=== PATIENT | male | born 1960 | race Two or more races ===

== ENCOUNTER 2016-03-14 11:50 | Emergency (ER) | payer MEDICAID ==
[~2016-03-14] VITALS: Ht 162.6 cm; Wt 120.2 kg
[~2016-03-14 11:50] MED LIST: ALBUPOW26 XX; ALPR2TAB2 PO; ASPI-498 OR; BACL-63 PO; DIPH-232 PO; DULO20CA PO; FURO20TA3 PO; IBUP800T24 PO; INSLISPI SC; INSUINJ2 SC; NORT25CA PO; OMEP20CA5 PO; ONDA4TAB8 SL; PAR20T PO; POTA10TA75 PO; PREG25CA PO; SIMV10TA84 PO; TRAM50TA2 PO; [UNRECOGNIZED DRUG - CODE] MT
[2016-03-14] MEDS ORDERED: SODIUM CHLORIDE 0.9% 1,000 ML IVB ONE (15:52)
[2016-03-14 16:31] LABS: Basophils # (auto) 0 uL; DEFINITIVE VIEW TRANSMISSION; Eosinophils # (auto) 0.2 uL; Hemoglobin 13.9 g/dL (13.5-17.5); Mean Corpuscular Hemoglobin 27.6 pg (28.0-32.0); Mean Platelet Volume 10.8 fL (7.4-10.4); Monocytes # (auto) 0.7 uL; Neutrophils % (auto) 61.1 % (37.0-80.0)
[2016-03-14 16:36] LABS: Basophils % (auto) 0.1 % (0.0-2.0); Eosinophils % (auto) 2.3 % (0.0-7.0); Hematocrit 43.5 % (41.0-53.0); Lymphocytes # (auto) 2.9 uL; Lymphocytes % (auto) 29.4 % (10.0-50.0); Mean Corpuscular Hgb Conc. 32.1 g/dL (32.0-36.0); Monocytes % (auto) 7.1 % (0.0-12.0); Platelet Count (auto) 179 10^3/uL (140-450); White Blood Cell 9.9 10^3/uL (4.4-10.8)
[2016-03-14 16:44] LABS: INR 1.05 (0.9-1.15); Partial Thromboplastin Time 26.1 sec (22.64-33.71); Prothrombin Time 10.8 sec (9.37-12.3)
[2016-03-14 16:46] LABS: Red Cell Distribution Width 20.6 % (11.6-16.0)
[2016-03-14 16:53] LABS: Albumin 3.9 g/dL (3.4-5.0); BUN/Creatinine Ratio 12.7; Bilirubin, Total 0.3 mg/dL (0.2-1.0); Calcium 9.5 mg/dL (8.5-10.1); Magnesium 2.2 mg/dL (1.6-2.6); Potassium 3.7 mmol/L (3.5-5.1); Total Protein 8.4 g/dL (6.4-8.2)
[2016-03-14 16:57] LABS: B-Type Natriuretic Peptide 1.81 pg/mL (0-100)
[2016-03-14 17:04] LABS: Temperature: 22.1 C (20.0-25.0)
[2016-03-14 17:49] LABS: Platelet Estimate Adequate
[2016-03-14 17:50] LABS: Anisocytosis Moderate
[2016-03-14 17:51] LABS: Stomatocytes Few
[2016-03-14 18:02] VITALS: BP 110/73
== END 2016-03-14 19:09 | disposition left against medical advice (07) ==
LOC: ER 11:50
DX: R05 Cough (principal); Z53.21 Procedure and treatment not carried out due to patient leaving prior to being seen by health care provider
CPT/HCPCS: 36415; 71010; 80053; 83735; 83880; 84484; 85025; 85610; 85730; 87040; 93005; J7030

== ENCOUNTER 2016-03-27 08:16 | Emergency (ER) | payer MEDICAID ==
[~2016-03-27] VITALS: Ht 162.6 cm; Wt 116.2 kg
[2016-03-27] MEDS ORDERED: INSLANTI SC (08:49)
[2016-03-27] MEDS ORDERED: LORA-154 PO (08:49)
[2016-03-27] MEDS ORDERED: FLUT1SPR5 (08:49)
[2016-03-27] MEDS ORDERED: FURO40TA PO (08:49)
[2016-03-27] MEDS ORDERED: PREG75CA PO (08:49)
[2016-03-27] MEDS ORDERED: BENZ100C70 PO (08:49)
[2016-03-27] MEDS ORDERED: TRAZ50TA2 PO (08:49)
[2016-03-27] MEDS ORDERED: MOME200A INH (08:49)
[2016-03-27] MEDS ORDERED: SODIUM CHLORIDE 0.9% 250 ML IV ONE (09:55)
[2016-03-27] MEDS ORDERED: ONDANSETRON HCL 4 MG/2 ML VIAL IV ONE (10:00)
[2016-03-27] MEDS ORDERED: hydrOXYzine PAMOATE 25 MG CAP PO ONE (10:00)
[2016-03-27 11:29] LABS: Basophils # (auto) 0 uL; Basophils % (auto) 0.2 % (0.0-2.0); DEFINITIVE VIEW TRANSMISSION; Eosinophils # (auto) 0.2 uL; Eosinophils % (auto) 2.3 % (0.0-7.0); Hematocrit 37.8 % (41.0-53.0); Lymphocytes # (auto) 1.7 uL; Mean Corpuscular Hemoglobin 27.8 pg (28.0-32.0); Mean Corpuscular Hgb Conc. 31.7 g/dL (32.0-36.0); Mean Corpuscular Volume 87.6 fL (80.0-100.0); Mean Platelet Volume 10.9 fL (7.4-10.4); Monocytes # (auto) 0.6 uL; Monocytes % (auto) 7.1 % (0.0-12.0); Neutrophils # (auto) 5.9 uL; Neutrophils % (auto) 70.4 % (37.0-80.0); Platelet Count (auto) 121 10^3/uL (140-450); Red Cell Distribution Width 19.4 % (11.6-16.0); White Blood Cell 8.4 10^3/uL (4.4-10.8)
[2016-03-27 11:39] LABS: INR 1.03 (0.9-1.15); Partial Thromboplastin Time 28.7 sec (22.64-33.71); Prothrombin Time 10.6 sec (9.37-12.3)
[2016-03-27 11:50] LABS: Albumin 2.9 g/dL (3.4-5.0); BUN/Creatinine Ratio 13.6; Bilirubin, Total 0.4 mg/dL (0.2-1.0); Calcium 8.3 mg/dL (8.5-10.1); Magnesium 2.2 mg/dL (1.6-2.6); Potassium 4.2 mmol/L (3.5-5.1); Total Protein 6.9 g/dL (6.4-8.2)
[2016-03-27 12:00] LABS: B-Type Natriuretic Peptide 49.45 pg/mL (0-100)
[2016-03-27 12:03] LABS: Temperature: 23.1 C (20.0-25.0)
[2016-03-27 12:17] VITALS: BP 127/76
== END 2016-03-27 13:20 | disposition home or self-care (01) ==
LOC: ER 08:19
DX: J44.1 Chronic obstructive pulmonary disease with (acute) exacerbation (principal); E78.5 Hyperlipidemia, unspecified; K21.9 Gastro-esophageal reflux disease without esophagitis; I11.0 Hypertensive heart disease with heart failure; I50.9 Heart failure, unspecified; E11.40 Type 2 diabetes mellitus with diabetic neuropathy, unspecified; F17.210 Nicotine dependence, cigarettes, uncomplicated; F12.10 Cannabis abuse, uncomplicated; E66.01 Morbid (severe) obesity due to excess calories; Z68.41 Body mass index [BMI] 40.0-44.9, adult; E46 Unspecified protein-calorie malnutrition; E11.65 Type 2 diabetes mellitus with hyperglycemia
CPT/HCPCS: 36415; 71020; 80053; 83735; 83880; 84443; 84484; 85025; 85379; 85610; 85730; 93005; 94761; 96361; 96374; 99285; J2405; J7030

== ENCOUNTER 2018-05-18 15:12 | Inpatient (IN) | payer MEDICAID | END 2018-05-19 17:00 | disposition left against medical advice (07) | LOC: ER 15:12 → TELE 18:27 → TELE-EAST 20:27 | DX: R07.9 Chest pain, unspecified (principal); D69.6 Thrombocytopenia, unspecified; E11.21 Type 2 diabetes mellitus with diabetic nephropathy; E11.22 Type 2 diabetes mellitus with diabetic chronic kidney disease; E11.40 Type 2 diabetes mellitus with diabetic neuropathy, unspecified; E66.01 Morbid (severe) obesity due to excess calories; J44.1 Chronic obstructive pulmonary disease with (acute) exacerbation; I13.0 Hypertensive heart and chronic kidney disease with heart failure and stage 1 through stage 4 chronic kidney disease, or unspecified chronic kidney disease ==